=== PATIENT | male | born 1975 | race Caucasian/White ===

== ENCOUNTER 2020-02-26 17:21 | Emergency (ER) | payer OTHER ==
[~2020-02-26] VITALS: Ht 175.3 cm; Wt 90.7 kg
[2020-02-26 18:21] VITALS: Ht 175.3 cm; Wt 90.7 kg
[2020-02-26 21:28] VITALS: BP 107/60
[2020-02-26 22:43] LABS: APPEARANCE FLUID TURBID; SITE FLUID RIGHT; SOURCE FLUID SYNOVIAL FLUID
[2020-02-26 22:44] LABS: COLOR FLUID RED; RBC FLUID 25133 /cumm; WBC FLUID 14133 /cumm
[2020-02-26 23:10] LABS: LYMPHOCYTE FLUID 1 %; MONOCYTE FLUID 15 %
== END 2020-02-26 23:42 | disposition home or self-care (01) ==
LOC: ED 17:21
PROVIDERS: Emergency Medicine
DX: M25.461 Effusion, right knee (principal); M13.861 Other specified arthritis, right knee
CPT/HCPCS: J2001